=== PATIENT | male | born 1960 | race Two or more races ===

== ENCOUNTER 2016-05-27 09:56 | Day surgery (SDC) | payer OTHER ==
[~2016-05-27] VITALS: Ht 160 cm; Wt 64.9 kg
[~2016-05-27 09:56] MED LIST: AMLO10TA2 PO; BRIM5DRO3 EACHEYE; CALC667C6 PO; CARV12.52 PO; CARV25TA PO; CEFAZOLIN 2GM PREMIX 50 ML IV PRN; DEXAMETHASONE SOD PHOS 20 MG/5 ML VIAL. ONE; DOCU100C5 PO; DORZ10DR7 EACHEYE; FENTANYL PF 100 MCG/2 ML VIAL. IV PRN; FENTANYL PF 100 MCG/2 ML VIAL. ONE; FURO40TA4 PO; HEPARIN S0DIUM 5,000 UNIT in IV NORMAL SALINE 500ML BAG 500 ML IRR ONE; HYDR-2666 PO; HYDROMORPHONE 2 MG/ML VIAL. IV PRN; IV RINGERS,LACTATED 1000ML 1,000 ML IV SCH; LATA2.5D3 OP; LIDOCAINE 1% 1 ML SYRINGE. ID PRN; LIDOCAINE 1% PF 48 ML, SODIUM BICARBONATE VIAL 12 MEQ in TOTAL VOLUME SYRINGE 60 ML ID ONE; LIDOCAINE 2% 100 MG/5 ML DISP.SYRIN. ONE; LISI-334 PO; MIDAZOLAM HCL 2 MG/2 ML VIAL. ONE; MORPHINE SULFATE 2 MG/ML DISP.SYRIN. IV PRN; ONDANSETRON PF 4 MG/2 ML VIAL. IV PRN; ONDANSETRON PF 4 MG/2 ML VIAL. ONE; PRED5DRO6 OP; PROCHLORPERAZINE 10 MG/2 ML VIAL. IV PRN; PROPOFOL 20 ML IV ONE; SEVOFLURANE 61 TO 120 MINUTES. IH ONE
[2016-05-27] MEDS ORDERED: SURGICEL FIBRILLAR 1X2 EACH. ONE (10:33)
[2016-05-27 10:39] LABS: BASO # 0.1 x10^3/uL (0.0-0.2); BASO % 2 % (0-3); EOS % 4 % (0-3); HEMATOCRIT 32.8 % (39.0-53.0); HEMOGLOBIN 10.9 g/dL (13.0-17.5); LYMPH # 1.3 x10^3/uL (1.0-4.8); LYMPH % 19 % (24-48); MEAN CORPUSCULAR HEMOGLOBIN 28 pg (25-35); MEAN CORPUSCULAR HGB CONC 33 g/dL (31-37); MEAN CORPUSCULAR VOLUME 85 fL (79-100); MONO % 8 % (0-9); NEUT % 68 % (31-73); PLATELET COUNT 287 x10^3/uL (140-400); RED BLOOD COUNT 3.88 x10^6/uL (4.30-5.70); RED CELL DISTRIBUTION WIDTH 16.9 % (11.5-14.5); WHITE BLOOD COUNT 6.8 x10^3/uL (4.0-11.0)
[2016-05-27] MEDS ORDERED: CEFAZOLIN PREMIX 2 GM/50 ML BAG. IV ONE (10:45)
[2016-05-27 10:46] LABS: CALCIUM 8.8 mg/dL (8.5-10.1); CREATININE 4.9 mg/dL (0.7-1.3); GFR 12.4; POTASSIUM 3.4 mmol/L (3.5-5.1)
[2016-05-27 10:51] LABS: INR 1.2 (0.8-1.1); PROTHROMBIN TIME PATIENT 14.9 SEC (11.7-14.0)
--- NOTE | 2016-05-27 16:21 | PDOC ---
VASCULAR BRIEF OPERATIVE NOTE Date: May 27, 2016 Pre-Op Diagnosis ESRD Post-Op Diagnosis same Procedure Performed jose de jesus fistula, left Surgeon Catherine Anesthesia Type: MAC, Local Blood Loss 5 NAHUN COSME MD May 27, 2016 16:21
[2016-05-27] MEDS ORDERED: IV NORMAL SALINE 1000ML BAG 1,000 ML IV SCH (16:45)
[2016-05-27] MEDS ORDERED: HYDR-971 PO (16:48)
[2016-05-27 17:32] VITALS: BP 127/67
--- NOTE | 2016-05-27 22:54 | OP ---
DATE OF SURGERY: 05/27/2016 PREOPERATIVE DIAGNOSIS: End-stage renal failure. POSTOPERATIVE DIAGNOSIS: End-stage renal failure. PROCEDURE PERFORMED: AV fistula, left forearm. ANESTHETIC: Local MAC. INDICATIONS: This is a 55-year-old male with progressive renal failure, need of long-term hemodialysis. His vein mapping showed adequate cephalic vein in the forearm. He is right arm dominant. He has palpable radial pulse. Recommendation was for radiocephalic arteriovenous fistula. FINDINGS: The radial artery was small, 1 mm, but soft. The cephalic vein was excellent, 3.5 to 4 mm vessel. DESCRIPTION OF PROCEDURE: The patient was given intravenous sedation. Preoperative antibiotics were administered, prepped and draped in a sterile fashion. 1% Xylocaine was utilized to anesthetize the tissues overlying the tissues adjacent to the cephalic vein and over the top of the distal radial artery. Longitudinal incision was placed. Soft tissue divided with electrocautery. The radial artery was isolated, doubly surrounded with vessel loops. The patient received 3000 units of intravenous heparin. The cephalic vein was mobilized. A large side branch was identified. The distal cephalic vein and the side branches were ligated with 3-0 silk suture. The proximal cephalic vein was occluded with a small spring bulldog and the vein was harvested, was distended with heparinized saline solution. Venotomy between the side branch and the main branch was then created. Vessel loops were secured on the radial artery. Longitudinal arteriotomy was made with 11 blade, extended with Nuñez scissors. A spatulated end-to-side anastomosis was completed with 7-0 Prolene suture. Blood flow was instituted through the fistula. Palpable thrill was noted. Suture line was hemostatic. The wound was closed with running 3-0 Vicryl and subcuticular tissue. Steri-Strips and sterile dressings were applied. The patient moved from the operating room to recovery in satisfactory stable condition. NAHUN COSME MD DR: ANTONIO/lesvia JOB#: [id number] / [id number]
== END 2016-05-27 17:32 | disposition home or self-care (01) ==
LOC: SURG 09:56
DX: E11.22 Type 2 diabetes mellitus with diabetic chronic kidney disease (principal); I12.0 Hypertensive chronic kidney disease with stage 5 chronic kidney disease or end stage renal disease; N18.6 End stage renal disease; Z99.2 Dependence on renal dialysis; E78.00 Pure hypercholesterolemia, unspecified; Z98.42 Cataract extraction status, left eye
CPT/HCPCS: 36415; 36818; 80048; 82947; 85027; 85610; 85730; C1769; J0690; J1100; J2250; J2405; J2704; J3010; J7040

== ENCOUNTER 2016-08-16 05:36 | Day surgery (SDC) | payer MEDICARE, OTHER ==
[~2016-08-16 05:36] MED LIST changes: -BRIM5DRO3 EACHEYE; +BRIM5DRO3 LEFTEYE; -CEFAZOLIN 2GM PREMIX 50 ML IV PRN; -DEXAMETHASONE SOD PHOS 20 MG/5 ML VIAL. ONE; -DORZ10DR7 EACHEYE; +DORZ10DR7 LEFTEYE; -FENTANYL PF 100 MCG/2 ML VIAL. IV PRN; -FENTANYL PF 100 MCG/2 ML VIAL. ONE; -HEPARIN S0DIUM 5,000 UNIT in IV NORMAL SALINE 500ML BAG 500 ML IRR ONE; +HYDR-971 PO; -HYDROMORPHONE 2 MG/ML VIAL. IV PRN; +INSU100I17 SQ; -IV RINGERS,LACTATED 1000ML 1,000 ML IV SCH; -LIDOCAINE 1% 1 ML SYRINGE. ID PRN; -LIDOCAINE 1% PF 48 ML, SODIUM BICARBONATE VIAL 12 MEQ in TOTAL VOLUME SYRINGE 60 ML ID ONE; -LIDOCAINE 2% 100 MG/5 ML DISP.SYRIN. ONE; -MIDAZOLAM HCL 2 MG/2 ML VIAL. ONE; -MORPHINE SULFATE 2 MG/ML DISP.SYRIN. IV PRN; -ONDANSETRON PF 4 MG/2 ML VIAL. IV PRN; -ONDANSETRON PF 4 MG/2 ML VIAL. ONE; -PROCHLORPERAZINE 10 MG/2 ML VIAL. IV PRN; -PROPOFOL 20 ML IV ONE; -SEVOFLURANE 61 TO 120 MINUTES. IH ONE
[2016-08-16] MEDS ORDERED: LIDOCAINE 1% PF 48 ML, SODIUM BICARBONATE VIAL 12 MEQ in TOTAL VOLUME SYRINGE 60 ML ID ONE (06:00)
[2016-08-16] MEDS ORDERED: HEPARIN SODIUM 5,000 UNIT in IV NORMAL SALINE 500ML BAG 500 ML IRR ONE (06:00)
[2016-08-16] MEDS ORDERED: ASPI-482 PO (06:25)
[2016-08-16] MEDS ORDERED: IV NORMAL SALINE 1000ML BAG 1,000 ML IV SCH (06:44)
[2016-08-16 06:52] LABS: BASO # 0.1 x10^3/uL (0.0-0.2); BASO % 1 % (0-3); EOS % 6 % (0-3); HEMATOCRIT 34.4 % (39.0-53.0); HEMOGLOBIN 11.4 g/dL (13.0-17.5); LYMPH # 1.2 x10^3/uL (1.0-4.8); LYMPH % 22 % (24-48); MEAN CORPUSCULAR HEMOGLOBIN 30 pg (25-35); MEAN CORPUSCULAR HGB CONC 33 g/dL (31-37); MEAN CORPUSCULAR VOLUME 89 fL (79-100); MONO % 10 % (0-9); NEUT % 60 % (31-73); PLATELET COUNT 203 x10^3/uL (140-400); RED BLOOD COUNT 3.87 x10^6/uL (4.30-5.70); RED CELL DISTRIBUTION WIDTH 15.6 % (11.5-14.5); WHITE BLOOD COUNT 5.2 x10^3/uL (4.0-11.0)
[2016-08-16] MEDS ORDERED: fentaNYL PF VIAL 100 MCG/2 ML VIAL IV PRN ×2 (07:00)
[2016-08-16] MEDS ORDERED: PROCHLORPERAZINE 10 MG/2 ML VIAL. IV PRN (07:00)
[2016-08-16] MEDS ORDERED: HYDROmorphone 2 MG/ML VIAL IV PRN (07:00)
[2016-08-16] MEDS ORDERED: MORPHINE SULFATE 2 MG/ML DISP.SYRIN. IV PRN (07:00)
[2016-08-16] MEDS ORDERED: LIDOCAINE 1% 1 ML SYRINGE. ID PRN (07:00)
[2016-08-16] MEDS ORDERED: IV RINGERS,LACTATED 1000ML 1,000 ML IV SCH (07:00)
[2016-08-16] MEDS ORDERED: ONDANSETRON PF 4 MG/2 ML VIAL. IV PRN (07:00)
[2016-08-16 07:01] LABS: INR 1.2 (0.8-1.1); PROTHROMBIN TIME PATIENT 14.4 SEC (11.7-14.0)
[2016-08-16 07:03] LABS: CALCIUM 8.8 mg/dL (8.5-10.1); GFR 15.7; POTASSIUM 3.4 mmol/L (3.5-5.1)
[2016-08-16] MEDS ORDERED: IOHEXOL 300 MG/ML 50 ML VIAL. ONE (07:04)
[2016-08-16] MEDS ORDERED: SURGICEL FIBRILLAR 1X2 EACH. ONE (07:04)
[2016-08-16] MEDS ORDERED: fentaNYL PF VIAL 100 MCG/2 ML VIAL ONE (07:08)
[2016-08-16] MEDS ORDERED: PROPOFOL 20 ML IV ONE (07:08)
[2016-08-16] MEDS ORDERED: LIDOCAINE 2% 100 MG/5 ML SYRINGE. ONE (07:08)
[2016-08-16] MEDS ORDERED: DEXAMETHASONE SOD PHOS 20 MG/5 ML VIAL. ONE (07:28)
[2016-08-16] MEDS ORDERED: ONDANSETRON PF 4 MG/2 ML VIAL. ONE (07:28)
[2016-08-16] MEDS ORDERED: SEVOFLURANE 31 TO 60 MINUTES. IH ONE (08:05)
--- NOTE | 2016-08-16 08:27 | PDOC ---
VASCULAR BRIEF OPERATIVE NOTE Date: August 16, 2016 Pre-Op Diagnosis ESRD Post-Op Diagnosis same Procedure Performed side branch ligation and dilatation of distal cephalic vein fistula Surgeon Catherine Anesthesia Type: General Blood Loss min NAHUN COSME MD August 16, 2016 08:27
[2016-08-16 09:15] VITALS: BP 136/72
--- NOTE | 2016-08-16 13:52 | OP ---
DATE OF SURGERY: 08/16/2016 PREOPERATIVE DIAGNOSIS: Renal failure. POSTOPERATIVE DIAGNOSIS: Renal failure. PROCEDURE PERFORMED: Ligation of two side branches in the left forearm Zeeshan fistula and intraoperative distal cephalic vein dilatation. SURGEON: Mayito Alexander M.D. ANESTHESIA: General. INDICATIONS: This is a 55-year-old patient with end-stage renal disease, dialysis dependent. Currently, has a central catheter for hemodialysis. He had an AV fistula placed Zeeshan-type several weeks ago. Followup ultrasound examination shows flow volumes of 693, two side branches are noted and there is suggestion of some narrowing of the distal venous segment adjacent to the anastomosis. Recommendation was for side branch ligation and intraoperative dilatation of the cephalic vein. DESCRIPTION OF PROCEDURE: The patient was brought to the Operating Room, general LMA anesthetic was administered. He was prepped and draped in sterile fashion. 1% Xylocaine was utilized to anesthetize the tissues overlying the side branches. Longitudinal incisions were placed, the main cephalic vein was visualized and the side branches were isolated. The most proximal side branch was ligated with 3-0 silk suture. The distal side branch was controlled proximally with vessel loops and ligated distally with a 3-0 silk suture. A small transverse venotomy was then made with 11 blade. A 1.5 through 2.5 mm Bakes dilator was then passed through this side branch into the distal vein towards the anastomosis and the dilator was passed readily into the radial artery. A 3-mm dilator would pass all the way up to the radial artery, did not pass into the radial artery and it was not forced at that point in time 2.5 mm outflow cephalic vein was of sufficient size to support long-term hemodialysis. The side branch dilators were then removed. The side branch was ligated with 3-0 silk suture and the wounds were closed with interrupted 3-0 Vicryl placed in subcuticular tissue. Steri-Strips and sterile dressings were applied. The patient moved to recovery in satisfactory stable condition. MAYITO ALEXANDER MD DR: ANTONIO/lesvia JOB#: [id number] / [id number]
== END 2016-08-16 09:30 | disposition home or self-care (01) ==
LOC: SURG 05:36
DX: E11.22 Type 2 diabetes mellitus with diabetic chronic kidney disease (principal); I12.0 Hypertensive chronic kidney disease with stage 5 chronic kidney disease or end stage renal disease; N18.6 End stage renal disease; J44.9 Chronic obstructive pulmonary disease, unspecified; Z87.01 Personal history of pneumonia (recurrent); D64.9 Anemia, unspecified; Z99.2 Dependence on renal dialysis
CPT/HCPCS: 36415; 36832; 80048; 85027; 85610; 85730; C1769; J0690; J1100; J2405; J2704; J3010; J7040; Q9967

== ENCOUNTER 2017-01-06 10:04 | Outpatient (CLI) | payer MEDICARE, OTHER ==
[~2017-01-06] VITALS: Ht 160 cm; Wt 61.7 kg
[~2017-01-06 10:04] MED LIST changes: +ASPI-482 PO; +DOCU100C28 PO; -DOCU100C5 PO; -HYDR-2666 PO; +HYDR-2758 PO; +PRED5DRO16 OP; -PRED5DRO6 OP
[2017-01-06] MEDS ORDERED: LEVO50TA5 PO (10:25)
[2017-01-06 10:29] LABS: BASO # 0.1 x10^3/uL (0.0-0.2); BASO % 1 % (0-3); EOS % 4 % (0-3); HEMATOCRIT 32.2 % (39.0-53.0); HEMOGLOBIN 10.5 g/dL (13.0-17.5); LYMPH # 0.8 x10^3/uL (1.0-4.8); LYMPH % 13 % (24-48); MEAN CORPUSCULAR HEMOGLOBIN 30 pg (25-35); MEAN CORPUSCULAR HGB CONC 32 g/dL (31-37); MEAN CORPUSCULAR VOLUME 92 fL (79-100); MONO % 7 % (0-9); NEUT % 74 % (31-73); PLATELET COUNT 178 x10^3/uL (140-400); RED BLOOD COUNT 3.51 x10^6/uL (4.30-5.70); RED CELL DISTRIBUTION WIDTH 16.6 % (11.5-14.5); WHITE BLOOD COUNT 5.8 x10^3/uL (4.0-11.0)
[2017-01-06 10:36] VITALS: BP 151/75
[2017-01-06] MEDS ORDERED: IODIXANOL 320 MG/ML 100 ML VIAL. ONE (10:38)
[2017-01-06] MEDS ORDERED: LIDOCAINE 1% / SOD BICARB 8.4% 20 ML VIAL. IJ ONE ×2 (10:38→11:15)
[2017-01-06 10:39] LABS: CREATININE 8.3 mg/dL (0.7-1.3); GFR 6.7; INR 1.2 (0.8-1.1); POTASSIUM 4.6 mmol/L (3.5-5.1); PROTHROMBIN TIME PATIENT 14.1 SEC (11.7-14.0)
--- NOTE | 2017-01-06 10:44 | PDOC1 ---
History and Physical Date of Procedure Date of Admission 01/06/17 Procedure Procedure Fistulogram with possible intervention Indication Indication Difficulty with dialysis access, possibly clotted History of Present Illness Reason for Visit Same Past Medical History Past Medical History CHF, ESRD on dialysis, CAP, pleural effusion Past Surgical History Past Surgical History LUE fistula Current Medications Current Medications Active Scripts Active Phoslo (Calcium Acetate) 667 Mg Capsule 1,334 Mg PO TIDWMEALS Coreg (Carvedilol) 25 Mg Tablet 1 Tab PO BID Reported Levothyroxine Sodium 50 Mcg Tablet 1 Tab PO DAILY Aspir 81 (Aspirin) 81 Mg Tablet.dr 1 Tab PO DAILY Wayne 5-325 Tablet (Acetaminophen/Hydrocodone Bitart) 1 Each Tablet 1 Tab PO Q4HRS PRN Amlodipine Besylate 10 Mg Tablet 10 Mg PO DAILY Docusate Sodium 100 Mg Capsule 1 Cap PO BID PRN Furosemide 40 Mg Tablet 1 Tab PO BID Allergies Allergies: Coded Allergies: No Known Drug Allergies (Unverified , 08/14/16) Physical Exam Lungs: Clear to auscultation Heart: Regular rate, Normal S1, Normal S2 Neuro: Normal gait, Normal speech Vascular Bruit in LUE fistula Assessment Assessment Difficulty with LUE fistula during dialysis, possible clot or stenosis Problems: Plan Plan Fistulogram with possible intervention ISMAEL GONZALEZ MD Jan 06, 2017 10:44
[2017-01-06] MEDS ORDERED: fentaNYL PF VIAL 100 MCG/2 ML VIAL ONE (10:53)
[2017-01-06] MEDS ORDERED: MIDAZOLAM HCL/PF 2 MG/2 ML VIAL. ONE (10:54)
[2017-01-06] MEDS ORDERED: MIDAZOLAM HCL/PF 2 MG/2 ML VIAL. IV ONE (11:15)
[2017-01-06] MEDS ORDERED: IODIXANOL 320 MG/ML 100 ML VIAL. IART ONE (11:15)
[2017-01-06] MEDS ORDERED: fentaNYL PF VIAL 100 MCG/2 ML VIAL IV ONE (11:15)
[2017-01-06] MEDS ORDERED: HEPARIN for IV BOLUS 10,000 UNIT/10 ML VIAL. ONE (11:31)
[2017-01-06] MEDS ORDERED: HEPARIN for IV BOLUS 10,000 UNIT/10 ML VIAL. IV ONE (11:47)
--- NOTE | 2017-01-06 12:05 | PDOC ---
Exam Biomedical Specialist Biomedical Specialist Natalie Tool Setter Apprentice Tool Setter Apprentice None Pre-Procedure Diagnosis Pre-Procedure Diagnosis ESRD on dialysis, difficulty with dialysis access Post-Procedure Diagnosis Post-Procedure Diagnosis Same Procedure Performed Procedure Performed Fistulogram with angioplasty Type of Anesthesia Type of Anesthesia Moderate Sedation Estimated Blood Loss EBL: 10 cc Specimens Specimans None Drain/Tubes Drains/Tubes None Condition of Patient Condition of Patient Stable ISMAEL GONZALEZ MD Jan 06, 2017 12:05
[2017-01-06 12:14] VITALS: BP 130/73
[2017-01-06 12:25] VITALS: BP 123/62
[2017-01-06 12:40] VITALS: BP 128/56
[2017-01-06 13:00] VITALS: BP 128/56
--- NOTE | 2017-01-06 13:18 | RAD ---
Procedure: 1. Left upper extremity dialysis fistulogram. 2. Angioplasty of the fistula near the arterial anastomosis Fistula has a palpable thrill prior to intervention. The procedure, risks, and complications, to include bleeding, infection, fistula rupture, need for a dialysis catheter were explained to the patient and his daughter and they understood and wished to proceed. Consent form signed. The left forearm was prepped and draped using maximal sterile technique and 1% Xylocaine used for local anesthesia. A micropuncture needle was used to access the fistula directed toward the outflow tract. A 0.018 wire was advanced through the micropuncture needle. Small dermatotomy was made. Micropuncture needle was removed and replaced with a micropuncture sheath. 0.018 wire and inner stiffener were removed. Fistulogram was performed. Fistulogram: Digital subtraction fistulogram was performed. There is a two-vessel outflow with the cephalic and brachial veins. The central veins are unremarkable without stenosis. There is a area of short segment stenosis in the fistula near the arterial anastomosis. Small pseudoaneurysm was in the fistula seen at the arterial anastomosis. The inflow artery is unremarkable. Attention was then placed on access directed toward the arterial anastomosis. A micropuncture needle was used to access the fistula directed toward the outflow tract. A 0.018 wire was advanced through the micropuncture needle. Small dermatotomy was made. Micropuncture needle was removed and replaced with a micropuncture sheath. 0.018 wire and inner stiffener were removed. Next a 5 Taiwanese sheath was placed over a Bentson wire directed towards the arterial anastomosis. Intervention: A 3 mm x 4 cm balloon was advanced across the stenosis. The balloon was inflated to 10 atmospheres. Repeat fistulogram showed improved flow in the fistula with mild residual stenosis. The sheath was removed and stasis was achieved with pursestring suture and manual compression. The micropuncture sheath was removed and stasis was achieved with manual compression. Sedation: Conscious sedation for 67 minutes. Intravenous Versed and fentanyl were administered. The patient was monitored by pulse oximetry and cardiovascular monitoring equipment and observed by the nurses in attendance. Complications: None Contrast: 90 ml's Visipaque. FLUOROSCOPY TIME 5.8 minutes EXPOSURES: 8 DAP: 46 gycm2 The patient tolerated the procedure well and will be observed in the recovery area. IMPRESSION: 1. Area of moderate stenosis in the fistula near the arterial anastomosis was treated with angioplasty. Only mild residual stenosis was seen with brisk flow through the length of the fistula post angioplasty. The residual stenosis may be due to immaturity. The area was angioplastied only to 3 mm due to concern for fistula damage if the region was narrowed due to immaturity. 2. Multiple thrombosed pseudoaneurysms were seen through the length of the fistula on ultrasound. Small pseudoaneurysm in the fistula just past the arterial anastomosis.
== END 2017-01-06 14:00 | disposition home or self-care (01) ==
LOC: INTRAD 10:04
PROVIDERS: ATTEND Internal Medicine Nephrology
DX: T82.858A Stenosis of other vascular prosthetic devices, implants and grafts, initial encounter (principal); Y83.8 Other surgical procedures as the cause of abnormal reaction of the patient, or of later complication, without mention of misadventure at the time of the procedure; Y92.89 Other specified places as the place of occurrence of the external cause; E11.39 Type 2 diabetes mellitus with other diabetic ophthalmic complication; H40.9 Unspecified glaucoma; E78.00 Pure hypercholesterolemia, unspecified; I13.0 Hypertensive heart and chronic kidney disease with heart failure and stage 1 through stage 4 chronic kidney disease, or unspecified chronic kidney disease; E11.22 Type 2 diabetes mellitus with diabetic chronic kidney disease; N18.9 Chronic kidney disease, unspecified; I50.9 Heart failure, unspecified; F17.200 Nicotine dependence, unspecified, uncomplicated; J44.9 Chronic obstructive pulmonary disease, unspecified; D64.9 Anemia, unspecified; Z87.442 Personal history of urinary calculi; Z86.69 Personal history of other diseases of the nervous system and sense organs; Z98.42 Cataract extraction status, left eye; Z99.2 Dependence on renal dialysis; Z87.01 Personal history of pneumonia (recurrent); Z87.39 Personal history of other diseases of the musculoskeletal system and connective tissue
CPT/HCPCS: 36415; 36902; 76937; 80048; 85025; 85610; 99152; 99153; C1725; C1769; C1892; C1894; J1644; J2250; J3010

== ENCOUNTER 2017-06-09 22:06 | Inpatient (IN) | payer MEDICARE, OTHER ==
[2017-06-09 22:40] LABS: BASO # 0.1 x10^3/uL (0.0-0.2); BASO % 1 % (0-3); EOS # 0.2 x10^3/uL (0.0-0.7); EOS % 2 % (0-3); HEMATOCRIT 35.6 % (39.0-53.0); HEMOGLOBIN 11.7 g/dL (13.0-17.5); LYMPH # 0.5 x10^3/uL (1.0-4.8); LYMPH % 4 % (24-48); MEAN CORPUSCULAR HEMOGLOBIN 29 pg (25-35); MEAN CORPUSCULAR HGB CONC 33 g/dL (31-37); MEAN CORPUSCULAR VOLUME 89 fL (79-100); MONO # 0.5 x10^3/uL (0.0-1.1); MONO % 4 % (0-9); NEUT # 10.3 x10^3uL (1.8-7.7); NEUT % 89 % (31-73); PLATELET COUNT 247 x10^3/uL (140-400); RED BLOOD COUNT 4.02 x10^6/uL (4.30-5.70); RED CELL DISTRIBUTION WIDTH 15.4 % (11.5-14.5); WHITE BLOOD COUNT 11.5 x10^3/uL (4.0-11.0)
[2017-06-09 22:41] LABS: ADD MAN DIFF? YES
[2017-06-09 22:49] LABS: ANION GAP 18 (6-14); BLOOD UREA NITROGEN 50 mg/dL (8-26); CALCIUM 9.5 mg/dL (8.5-10.1); CARBON DIOXIDE 20 mmol/L (21-32); CHLORIDE 105 mmol/L (98-107); CREATININE 5.3 mg/dL (0.7-1.3); GFR 11.3; GLUCOSE 112 mg/dL (70-99); POTASSIUM 4.5 mmol/L (3.5-5.1); SODIUM 143 mmol/L (136-145)
[2017-06-09 22:55] LABS: ALBUMIN 3.6 g/dL (3.4-5.0); ALK PHOS 234 U/L (46-116); ALT (SGPT) 26 U/L (16-63); AST (SGOT) 24 U/L (15-37); DIRECT BILIRUBIN 0.3 mg/dL (0.0-0.2); MAGNESIUM 2.3 mg/dL (1.8-2.4); TOTAL BILIRUBIN 0.6 mg/dL (0.2-1.0); TOTAL PROTEIN 8.7 g/dL (6.4-8.2)
[2017-06-09 22:58] LABS: TROPONINI < 0.017 ng/mL (0.000-0.055)
[2017-06-09 22:58] LABS: % BANDS 7 % (0-9); % EOS 1 % (0-5); % LYMPHS 8 % (24-48); % MONOS 7 % (0-10); % SEGS 77 % (35-66); PLT ESTIMATE ADEQUATE (ADEQUATE)
[2017-06-09] MEDS ORDERED: PIP/TAZO PER PHARMACY MC (23:00)
[2017-06-09] MEDS ORDERED: levOFLOXacin PER PHARMACY. MC (23:00)
[2017-06-09 23:02] LABS: CKMB INDEX 2.3 % (0-4); CREATINE KINASE 175 U/L (39-308)
[2017-06-09 23:08] LABS: NT-PRO BNP > 35000 pg/mL (0-124)
[2017-06-09 23:13] LABS: LACTIC ACID 1.8 mmol/L (0.4-2.0)
[2017-06-09] MEDS: PIPERACILLIN/TAZOBACTAM 3.375 GM in IV NORMAL SALINE 50ML 50 ML IV (23:25)
[2017-06-10] MEDS ORDERED: hydrALAZINE 20 MG/ML VIAL. IVP ×2 (00:45→14:15)
[2017-06-10] MEDS: fentaNYL PF VIAL 100 MCG/2 ML VIAL IV ×5 (01:31→19:00)
[2017-06-10] MEDS: VANCOMYCIN 1.5 GM in IV DEXTROSE 5 %-0.2 % NACL 500 ML IV (02:34)
[2017-06-10 02:52] LABS: ADD MAN DIFF? NO
[2017-06-10] MEDS: VANCOMYCIN PER PHARMACY MC (02:58)
[2017-06-10 04:21] LABS: BASO # 0.1 x10^3/uL (0.0-0.2); BASO % 1 % (0-3); EOS % 0 % (0-3); HEMATOCRIT 32.2 % (39.0-53.0); HEMOGLOBIN 10.5 g/dL (13.0-17.5); LYMPH # 0.5 x10^3/uL (1.0-4.8); LYMPH % 5 % (24-48); MEAN CORPUSCULAR HEMOGLOBIN 29 pg (25-35); MEAN CORPUSCULAR HGB CONC 33 g/dL (31-37); MEAN CORPUSCULAR VOLUME 90 fL (79-100); MONO # 0.7 x10^3/uL (0.0-1.1); MONO % 6 % (0-9); NEUT # 10.2 x10^3uL (1.8-7.7); NEUT % 89 % (31-73); PLATELET COUNT 211 x10^3/uL (140-400); RED BLOOD COUNT 3.59 x10^6/uL (4.30-5.70); RED CELL DISTRIBUTION WIDTH 15.6 % (11.5-14.5); WHITE BLOOD COUNT 11.5 x10^3/uL (4.0-11.0)
[2017-06-10 05:24] LABS: ALBUMIN 2.9 g/dL (3.4-5.0); ALBUMIN/GLOBULIN RATIO 0.7 (1.0-1.7); ALK PHOS 171 U/L (46-116); ALT (SGPT) 23 U/L (16-63); ANION GAP 15 (6-14); AST (SGOT) 19 U/L (15-37); BLOOD UREA NITROGEN 53 mg/dL (8-26); BUN/CREATININE RATIO 10 (6-20); CARBON DIOXIDE 19 mmol/L (21-32); CHLORIDE 106 mmol/L (98-107); CREATININE 5.3 mg/dL (0.7-1.3); GFR 11.3; GLUCOSE 106 mg/dL (70-99); POTASSIUM 4.3 mmol/L (3.5-5.1); SODIUM 140 mmol/L (136-145); TOTAL BILIRUBIN 0.7 mg/dL (0.2-1.0); TOTAL PROTEIN 7.2 g/dL (6.4-8.2)
[2017-06-10] MEDS: ONDANSETRON PF 4 MG/2 ML VIAL. IV (05:40)
[2017-06-10] MEDS: PIPERACILLIN/TAZOBACTAM 2.25 GM in IV NORMAL SALINE 50ML 50 ML IV (06:21)
[2017-06-10 07:44] LABS: TROPONINI 0.017 ng/mL (0.000-0.055)
[2017-06-10] MEDS: LACTOBACILLUS RHAMNOSUS GG 1 CAPSULE. PO ×2 (08:17→20:57)
[2017-06-10] MEDS ORDERED: MAGNESIUM SULFATE 2GM 50 ML IV (08:45)
[2017-06-10 12:43] LABS: INFLUENZA A PATIENT NEGATIVE (NEGATIVE); INFLUENZA B PATIENT NEGATIVE (NEGATIVE); OBC FLU VALID
[2017-06-10] MEDS ORDERED: IV NORMAL SALINE 1000ML BAG 1,000 ML IV ×2 (13:41)
[2017-06-10] MEDS ORDERED: DIALYSIS PATIENT. MC ×2 (13:45)
[2017-06-10] MEDS ORDERED: ALBUMIN HUMAN 25% 200 ML IV (13:45)
[2017-06-10] MEDS ORDERED: PROCHLORPERAZINE 5 MG TABLET. PO (14:15)
[2017-06-10] MEDS ORDERED: DOCUSATE SODIUM 100 MG CAPSULE. PO (14:15)
[2017-06-10] MEDS ORDERED: ALBUTEROL SULFATE 2.5 MG/3 ML NEBU. NEB (14:15)
[2017-06-10] MEDS ORDERED: ONDANSETRON ODT 4 MG TAB.RAPDIS. PO (14:15)
[2017-06-10] MEDS ORDERED: VANCOMYCIN RANDOM LEVEL. MC (16:00)
[2017-06-10] MEDS: CALCIUM ACETATE 667 MG CAPSULE PO (17:00)
[2017-06-10] MEDS: CARVEDILOL 12.5 MG TABLET. PO (18:59)
[2017-06-10] MEDS: SODIUM CHLORIDE 0.65% NASAL SPRAY 45ML BOTTLE. NS (20:08)
[2017-06-10] MEDS: FUROSEMIDE 40 MG TABLET. PO (20:57)
[2017-06-10] MEDS: DARBEPOETIN ALFA 60 MCG/0.3 ML DISP.SYRIN. SQ (20:58)
[2017-06-10] MEDS: hydrALAZINE 25 MG TABLET PO (20:58)
[2017-06-10] MEDS: DOCUSATE SODIUM 100 MG CAPSULE. PO (20:58)
[2017-06-10] MEDS: ZOLPIDEM 5 MG TABLET. PO (21:02)
[2017-06-10] MEDS: HEPARIN PF for SUB-Q USE 5,000 UNIT/0.5 ML VIAL. SQ (21:03)
[2017-06-11] MEDS: traMADol 50 MG TABLET PO ×2 (02:42→20:40)
[2017-06-11 04:42] LABS: ADD MAN DIFF? NO
[2017-06-11 04:58] LABS: BASO % 0 % (0-3); EOS % 0 % (0-3); HEMATOCRIT 31.2 % (39.0-53.0); HEMOGLOBIN 10.2 g/dL (13.0-17.5); LYMPH # 0.6 x10^3/uL (1.0-4.8); LYMPH % 4 % (24-48); MEAN CORPUSCULAR HEMOGLOBIN 29 pg (25-35); MEAN CORPUSCULAR HGB CONC 33 g/dL (31-37); MEAN CORPUSCULAR VOLUME 89 fL (79-100); MONO # 1.1 x10^3/uL (0.0-1.1); MONO % 8 % (0-9); NEUT # 11.7 x10^3uL (1.8-7.7); NEUT % 87 % (31-73); PLATELET COUNT 174 x10^3/uL (140-400); RED BLOOD COUNT 3.51 x10^6/uL (4.30-5.70); RED CELL DISTRIBUTION WIDTH 15.8 % (11.5-14.5); WHITE BLOOD COUNT 13.4 x10^3/uL (4.0-11.0)
[2017-06-11 05:17] LABS: ALBUMIN 2.5 g/dL (3.4-5.0); ANION GAP 9 (6-14); BLOOD UREA NITROGEN 32 mg/dL (8-26); CALCIUM 8.5 mg/dL (8.5-10.1); CARBON DIOXIDE 32 mmol/L (21-32); CHLORIDE 98 mmol/L (98-107); CREATININE 3.6 mg/dL (0.7-1.3); GFR 17.7; GLUCOSE 95 mg/dL (70-99); MAGNESIUM 1.9 mg/dL (1.8-2.4); PHOSPHORUS 2.2 mg/dL (2.6-4.7); POTASSIUM 3.8 mmol/L (3.5-5.1); SODIUM 139 mmol/L (136-145)
[2017-06-11] MEDS: LEVOTHYROXINE 50 MCG TABLET PO (06:19)
[2017-06-11] MEDS: HEPARIN PF for SUB-Q USE 5,000 UNIT/0.5 ML VIAL. SQ ×3 (06:20→20:44)
[2017-06-11] MEDS: LACTOBACILLUS RHAMNOSUS GG 1 CAPSULE. PO ×2 (08:56→20:39)
[2017-06-11] MEDS: FUROSEMIDE 40 MG TABLET. PO ×2 (08:56→15:25)
[2017-06-11] MEDS: hydrALAZINE 25 MG TABLET PO ×2 (08:56→20:39)
[2017-06-11] MEDS: CALCIUM ACETATE 667 MG CAPSULE PO ×3 (08:56→16:35)
[2017-06-11] MEDS: ASPIRIN ENTERIC COATED 81 MG TABLET.DR. PO (08:56)
[2017-06-11] MEDS: DOCUSATE SODIUM 100 MG CAPSULE. PO ×2 (08:56→20:39)
[2017-06-11] MEDS: amLODIPine BESYLATE 10 MG TABLET PO (08:57)
[2017-06-11] MEDS: LISINOPRIL 20 MG TABLET PO (08:57)
[2017-06-11] MEDS: CARVEDILOL 12.5 MG TABLET. PO ×2 (08:58→16:36)
[2017-06-11] MEDS: ISOSORBIDE MONONITRATE ER 30 MG TAB.ER.24H PO (09:02)
[2017-06-11] MEDS ORDERED: IV NORMAL SALINE 1000ML BAG 1,000 ML IV ×2 (10:22)
[2017-06-11] MEDS ORDERED: ACETAMINOPHEN 500 MG TABLET PO (10:30)
[2017-06-11] MEDS ORDERED: diphenhydrAMINE 50 MG/ML VIAL IV ×2 (10:30)
[2017-06-11] MEDS ORDERED: DIALYSIS PATIENT. MC (10:30)
[2017-06-11] MEDS: ACETAMINOPHEN 325 MG TABLET. PO (19:07)
[2017-06-11] MEDS: ZOLPIDEM 5 MG TABLET. PO (20:39)
[2017-06-12 05:04] LABS: ADD MAN DIFF? NO
[2017-06-12 05:23] LABS: BASO % 0 % (0-3); EOS # 0.1 x10^3/uL (0.0-0.7); EOS % 0 % (0-3); HEMATOCRIT 31.5 % (39.0-53.0); HEMOGLOBIN 10.2 g/dL (13.0-17.5); LYMPH # 0.5 x10^3/uL (1.0-4.8); LYMPH % 4 % (24-48); MEAN CORPUSCULAR HEMOGLOBIN 29 pg (25-35); MEAN CORPUSCULAR HGB CONC 32 g/dL (31-37); MEAN CORPUSCULAR VOLUME 90 fL (79-100); MONO # 1.1 x10^3/uL (0.0-1.1); MONO % 8 % (0-9); NEUT # 12.7 x10^3uL (1.8-7.7); NEUT % 88 % (31-73); PLATELET COUNT 180 x10^3/uL (140-400); RED BLOOD COUNT 3.51 x10^6/uL (4.30-5.70); RED CELL DISTRIBUTION WIDTH 15.9 % (11.5-14.5); WHITE BLOOD COUNT 14.4 x10^3/uL (4.0-11.0)
[2017-06-12 05:48] LABS: ALBUMIN 2.3 g/dL (3.4-5.0); ANION GAP 9 (6-14); BLOOD UREA NITROGEN 39 mg/dL (8-26); CALCIUM 8.9 mg/dL (8.5-10.1); CARBON DIOXIDE 29 mmol/L (21-32); CHLORIDE 100 mmol/L (98-107); CREATININE 3.3 mg/dL (0.7-1.3); GFR 19.6; GLUCOSE 102 mg/dL (70-99); MAGNESIUM 2.1 mg/dL (1.8-2.4); PHOSPHORUS 2.3 mg/dL (2.6-4.7); POTASSIUM 4.1 mmol/L (3.5-5.1); SODIUM 138 mmol/L (136-145)
[2017-06-12] MEDS: LEVOTHYROXINE 50 MCG TABLET PO (06:16)
[2017-06-12] MEDS: HEPARIN PF for SUB-Q USE 5,000 UNIT/0.5 ML VIAL. SQ ×3 (06:17→21:02)
[2017-06-12] MEDS: CALCIUM ACETATE 667 MG CAPSULE PO ×3 (07:32→15:35)
[2017-06-12] MEDS: DOCUSATE SODIUM 100 MG CAPSULE. PO ×2 (07:32→20:57)
[2017-06-12] MEDS: LACTOBACILLUS RHAMNOSUS GG 1 CAPSULE. PO ×2 (07:32→20:56)
[2017-06-12] MEDS: ASPIRIN ENTERIC COATED 81 MG TABLET.DR. PO (07:32)
[2017-06-12] MEDS ORDERED: IV NORMAL SALINE 1000ML BAG 1,000 ML IV ×2 (07:35)
[2017-06-12] MEDS: LISINOPRIL 20 MG TABLET PO (07:36)
[2017-06-12] MEDS: amLODIPine BESYLATE 10 MG TABLET PO (07:36)
[2017-06-12] MEDS: hydrALAZINE 25 MG TABLET PO ×2 (07:36→20:57)
[2017-06-12] MEDS: CARVEDILOL 12.5 MG TABLET. PO ×2 (07:37→15:36)
[2017-06-12] MEDS: ISOSORBIDE MONONITRATE ER 30 MG TAB.ER.24H PO (07:37)
[2017-06-12] MEDS ORDERED: ACETAMINOPHEN 500 MG TABLET PO (07:45)
[2017-06-12] MEDS ORDERED: diphenhydrAMINE 50 MG/ML VIAL IV ×2 (07:45)
[2017-06-12] MEDS ORDERED: DIALYSIS PATIENT. MC (07:45)
[2017-06-12] MEDS: FUROSEMIDE 40 MG TABLET. PO ×2 (09:00→15:24)
[2017-06-12] MEDS: traMADol 50 MG TABLET PO (15:35)
[2017-06-12] MEDS: ZOLPIDEM 5 MG TABLET. PO (20:57)
[2017-06-12 21:44] LABS: BILIRUBIN,URINE MODERATE (NEG); CLARITY,URINE CLOUDY; GLUCOSE,URINE 250 mg/dL (NEG); NITRITE,URINE NEGATIVE (NEG); PROTEIN,URINE >=300 mg/dL (NEG-TRACE)
[2017-06-12 21:55] LABS: COLOR,URINE AMBER
[2017-06-12 21:56] LABS: RBC,URINE >40 /HPF (0-2); WBC,URINE >40 /HPF (0-4)
[2017-06-12 21:57] LABS: BACTERIA,URINE FEW /HPF (0-FEW); HYALINE CASTS, URINE FEW /HPF
[2017-06-12 21:58] LABS: AMORPHOUS SEDIMENT,UR PRESENT /HPF
[2017-06-13 03:47] LABS: ALBUMIN 2.3 g/dL (3.4-5.0); ANION GAP 8 (6-14); BLOOD UREA NITROGEN 40 mg/dL (8-26); CALCIUM 8.9 mg/dL (8.5-10.1); CARBON DIOXIDE 32 mmol/L (21-32); CHLORIDE 97 mmol/L (98-107); CREATININE 3.1 mg/dL (0.7-1.3); GLUCOSE 148 mg/dL (70-99); MAGNESIUM 2.1 mg/dL (1.8-2.4); PHOSPHORUS 1.4 mg/dL (2.6-4.7); POTASSIUM 4.1 mmol/L (3.5-5.1); SODIUM 137 mmol/L (136-145)
[2017-06-13] MEDS: LEVOTHYROXINE 50 MCG TABLET PO (07:33)
[2017-06-13] MEDS: HEPARIN PF for SUB-Q USE 5,000 UNIT/0.5 ML VIAL. SQ ×3 (07:35→21:08)
[2017-06-13 08:37] LABS: INR 1.3 (0.8-1.1); PROTHROMBIN TIME PATIENT 15.6 SEC (11.7-14.0)
[2017-06-13] MEDS: ISOSORBIDE MONONITRATE ER 30 MG TAB.ER.24H PO (09:08)
[2017-06-13] MEDS: ASPIRIN ENTERIC COATED 81 MG TABLET.DR. PO (09:08)
[2017-06-13] MEDS: FUROSEMIDE 40 MG TABLET. PO ×2 (09:08→12:53)
[2017-06-13] MEDS: LISINOPRIL 20 MG TABLET PO (09:09)
[2017-06-13] MEDS: DOCUSATE SODIUM 100 MG CAPSULE. PO ×2 (09:09→20:56)
[2017-06-13] MEDS: amLODIPine BESYLATE 10 MG TABLET PO (09:09)
[2017-06-13] MEDS: LACTOBACILLUS RHAMNOSUS GG 1 CAPSULE. PO ×2 (09:09→20:56)
[2017-06-13] MEDS: CARVEDILOL 12.5 MG TABLET. PO ×2 (09:10→16:51)
[2017-06-13] MEDS: CALCIUM ACETATE 667 MG CAPSULE PO ×2 (09:10→12:52)
[2017-06-13] MEDS: hydrALAZINE 25 MG TABLET PO ×2 (09:10→20:59)
[2017-06-13] MEDS ORDERED: PIP/TAZO PER PHARMACY MC (10:45)
[2017-06-13] MEDS: VANCOMYCIN 1.5 GM in IV DEXTROSE 5 %-0.2 % NACL 500 ML IV (12:52)
[2017-06-13] MEDS: PIPERACILLIN/TAZOBACTAM 3.375 GM in IV NORMAL SALINE 50ML 50 ML IV (12:54)
[2017-06-13] MEDS: VANCOMYCIN PER PHARMACY MC (14:44)
[2017-06-13] MEDS ORDERED: LIDOCAINE WITH 8.4% SOD BICARB 3 ML DISP.SYRIN. (15:05)
[2017-06-13] MEDS: LIDOCAINE WITH 8.4% SOD BICARB 3 ML DISP.SYRIN. INJ (15:45)
[2017-06-13] MEDS: ACETAMINOPHEN 325 MG TABLET. PO (17:35)
[2017-06-13] MEDS: ZOLPIDEM 5 MG TABLET. PO (20:56)
[2017-06-13] MEDS: PIPERACILLIN/TAZOBACTAM 2.25 GM in IV NORMAL SALINE 50ML 50 ML IV (20:59)
[2017-06-14 05:48] LABS: ADD MAN DIFF? NO
[2017-06-14 05:55] LABS: BASO % 0 % (0-3); EOS # 0.1 x10^3/uL (0.0-0.7); EOS % 1 % (0-3); HEMATOCRIT 29.7 % (39.0-53.0); HEMOGLOBIN 9.6 g/dL (13.0-17.5); LYMPH # 0.5 x10^3/uL (1.0-4.8); LYMPH % 6 % (24-48); MEAN CORPUSCULAR HEMOGLOBIN 29 pg (25-35); MEAN CORPUSCULAR HGB CONC 32 g/dL (31-37); MEAN CORPUSCULAR VOLUME 89 fL (79-100); MONO % 11 % (0-9); NEUT # 7.6 x10^3uL (1.8-7.7); NEUT % 82 % (31-73); PLATELET COUNT 158 x10^3/uL (140-400); RED BLOOD COUNT 3.36 x10^6/uL (4.30-5.70); RED CELL DISTRIBUTION WIDTH 15.6 % (11.5-14.5); WHITE BLOOD COUNT 9.4 x10^3/uL (4.0-11.0)
[2017-06-14 06:07] LABS: MAGNESIUM 2.4 mg/dL (1.8-2.4)
[2017-06-14 06:08] LABS: ANION GAP 6 (6-14); BLOOD UREA NITROGEN 73 mg/dL (8-26); CALCIUM 9.1 mg/dL (8.5-10.1); CARBON DIOXIDE 29 mmol/L (21-32); CHLORIDE 94 mmol/L (98-107); CREATININE 4.9 mg/dL (0.7-1.3); GFR 12.4; GLUCOSE 189 mg/dL (70-99); PHOSPHORUS 1.2 mg/dL (2.6-4.7); POTASSIUM 4.1 mmol/L (3.5-5.1); SODIUM 129 mmol/L (136-145)
[2017-06-14] MEDS: PIPERACILLIN/TAZOBACTAM 2.25 GM in IV NORMAL SALINE 50ML 50 ML IV ×3 (06:15→22:10)
[2017-06-14] MEDS: LEVOTHYROXINE 50 MCG TABLET PO (06:15)
[2017-06-14] MEDS: HEPARIN PF for SUB-Q USE 5,000 UNIT/0.5 ML VIAL. SQ ×3 (06:16→22:16)
[2017-06-14] MEDS: traMADol 50 MG TABLET PO (06:32)
[2017-06-14] MEDS: FUROSEMIDE 40 MG TABLET. PO ×2 (09:00→14:00)
[2017-06-14] MEDS: hydrALAZINE 25 MG TABLET PO ×2 (09:00→20:35)
[2017-06-14] MEDS: ISOSORBIDE MONONITRATE ER 30 MG TAB.ER.24H PO (09:00)
[2017-06-14] MEDS: LACTOBACILLUS RHAMNOSUS GG 1 CAPSULE. PO ×2 (09:00→20:35)
[2017-06-14] MEDS: CARVEDILOL 12.5 MG TABLET. PO ×2 (09:00→17:00)
[2017-06-14] MEDS: LISINOPRIL 20 MG TABLET PO (09:00)
[2017-06-14] MEDS: ASPIRIN ENTERIC COATED 81 MG TABLET.DR. PO (09:01)
[2017-06-14] MEDS: DOCUSATE SODIUM 100 MG CAPSULE. PO ×2 (09:01→20:32)
[2017-06-14] MEDS: amLODIPine BESYLATE 10 MG TABLET PO (09:01)
[2017-06-14] MEDS ORDERED: IV NORMAL SALINE 1000ML BAG 1,000 ML IV (09:14)
[2017-06-14] MEDS ORDERED: ALBUMIN HUMAN 25% 200 ML IV (09:15)
[2017-06-14] MEDS ORDERED: DIALYSIS PATIENT. MC (09:15)
[2017-06-14] MEDS: VANCOMYCIN PER PHARMACY MC (11:08)
[2017-06-14] MEDS: ONDANSETRON PF 4 MG/2 ML VIAL. IV (20:32)
[2017-06-14] MEDS: ACETAMINOPHEN 325 MG TABLET. PO (20:32)
[2017-06-14] MEDS: ZOLPIDEM 5 MG TABLET. PO (20:37)
[2017-06-15] MEDS: METOPROLOL TART IMMED RELEASE 50 MG TABLET. PO (00:01)
[2017-06-15 00:12] LABS: POC GLUCOSE 263 mg/dL (70-99)
[2017-06-15 03:07] LABS: BODY FLUID LDH 277 IU/L (.)
[2017-06-15 04:41] LABS: ANION GAP 8 (6-14); BLOOD UREA NITROGEN 48 mg/dL (8-26); CALCIUM 8.3 mg/dL (8.5-10.1); CARBON DIOXIDE 27 mmol/L (21-32); CHLORIDE 100 mmol/L (98-107); CREATININE 3.6 mg/dL (0.7-1.3); GFR 17.7; GLUCOSE 231 mg/dL (70-99); PHOSPHORUS 1.6 mg/dL (2.6-4.7); POTASSIUM 4.2 mmol/L (3.5-5.1); SODIUM 135 mmol/L (136-145)
[2017-06-15 05:05] LABS: MAGNESIUM 2.3 mg/dL (1.8-2.4)
[2017-06-15] MEDS: PIPERACILLIN/TAZOBACTAM 2.25 GM in IV NORMAL SALINE 50ML 50 ML IV ×3 (05:48→21:26)
[2017-06-15] MEDS: LEVOTHYROXINE 50 MCG TABLET PO (05:48)
[2017-06-15] MEDS: HEPARIN PF for SUB-Q USE 5,000 UNIT/0.5 ML VIAL. SQ ×3 (05:53→21:31)
[2017-06-15] MEDS: VANCOMYCIN RANDOM LEVEL. MC (06:00)
[2017-06-15] MEDS: VANCOMYCIN PER PHARMACY MC (07:16)
[2017-06-15 07:42] LABS: ADD MAN DIFF? NO
[2017-06-15 07:45] LABS: BASO # 0.1 x10^3/uL (0.0-0.2); BASO % 1 % (0-3); EOS # 0.1 x10^3/uL (0.0-0.7); EOS % 1 % (0-3); HEMATOCRIT 30.1 % (39.0-53.0); HEMOGLOBIN 9.5 g/dL (13.0-17.5); LYMPH # 0.7 x10^3/uL (1.0-4.8); LYMPH % 8 % (24-48); MEAN CORPUSCULAR HEMOGLOBIN 29 pg (25-35); MEAN CORPUSCULAR HGB CONC 32 g/dL (31-37); MEAN CORPUSCULAR VOLUME 90 fL (79-100); MONO % 12 % (0-9); NEUT # 6.5 x10^3uL (1.8-7.7); NEUT % 78 % (31-73); PLATELET COUNT 156 x10^3/uL (140-400); RED BLOOD COUNT 3.34 x10^6/uL (4.30-5.70); RED CELL DISTRIBUTION WIDTH 16.4 % (11.5-14.5); WHITE BLOOD COUNT 8.3 x10^3/uL (4.0-11.0)
[2017-06-15] MEDS: DOCUSATE SODIUM 100 MG CAPSULE. PO ×2 (08:53→21:18)
[2017-06-15] MEDS: LACTOBACILLUS RHAMNOSUS GG 1 CAPSULE. PO ×2 (08:53→21:17)
[2017-06-15] MEDS: CARVEDILOL 12.5 MG TABLET. PO ×2 (08:53→19:20)
[2017-06-15] MEDS: LISINOPRIL 20 MG TABLET PO (08:54)
[2017-06-15] MEDS: ISOSORBIDE MONONITRATE ER 30 MG TAB.ER.24H PO (08:54)
[2017-06-15] MEDS: ASPIRIN ENTERIC COATED 81 MG TABLET.DR. PO (08:54)
[2017-06-15] MEDS: amLODIPine BESYLATE 10 MG TABLET PO (08:56)
[2017-06-15] MEDS: METOPROLOL TART IMMED RELEASE 25 MG TABLET. PO ×2 (08:56→21:26)
[2017-06-15] MEDS: hydrALAZINE 25 MG TABLET PO ×2 (08:56→21:18)
[2017-06-15] MEDS: FUROSEMIDE 40 MG TABLET. PO ×2 (08:56→15:20)
[2017-06-15] MEDS: MORPHINE SULFATE 4 MG/ML DISP.SYRIN. IV ×2 (15:29→19:20)
[2017-06-15] MEDS: ONDANSETRON PF 4 MG/2 ML VIAL. IV (21:18)
[2017-06-15] MEDS: ZOLPIDEM 5 MG TABLET. PO (21:18)
[2017-06-15] MEDS: ACETAMINOPHEN 325 MG TABLET. PO (21:18)
[2017-06-16 03:47] LABS: ADD MAN DIFF? NO
[2017-06-16 04:00] LABS: BASO # 0.1 x10^3/uL (0.0-0.2); BASO % 1 % (0-3); EOS # 0.1 x10^3/uL (0.0-0.7); EOS % 2 % (0-3); HEMATOCRIT 27.3 % (39.0-53.0); HEMOGLOBIN 8.9 g/dL (13.0-17.5); LYMPH # 0.7 x10^3/uL (1.0-4.8); LYMPH % 9 % (24-48); MEAN CORPUSCULAR HEMOGLOBIN 29 pg (25-35); MEAN CORPUSCULAR HGB CONC 33 g/dL (31-37); MEAN CORPUSCULAR VOLUME 89 fL (79-100); MONO # 0.8 x10^3/uL (0.0-1.1); MONO % 10 % (0-9); NEUT # 6.3 x10^3uL (1.8-7.7); NEUT % 78 % (31-73); PLATELET COUNT 161 x10^3/uL (140-400); RED BLOOD COUNT 3.06 x10^6/uL (4.30-5.70); RED CELL DISTRIBUTION WIDTH 16.1 % (11.5-14.5); WHITE BLOOD COUNT 8.1 x10^3/uL (4.0-11.0)
[2017-06-16 04:48] LABS: ALBUMIN 1.8 g/dL (3.4-5.0); ANION GAP 9 (6-14); BLOOD UREA NITROGEN 71 mg/dL (8-26); CALCIUM 8.8 mg/dL (8.5-10.1); CARBON DIOXIDE 27 mmol/L (21-32); CHLORIDE 95 mmol/L (98-107); GFR 12.1; GLUCOSE 245 mg/dL (70-99); POTASSIUM 4.7 mmol/L (3.5-5.1); SODIUM 131 mmol/L (136-145)
[2017-06-16] MEDS: PIPERACILLIN/TAZOBACTAM 2.25 GM in IV NORMAL SALINE 50ML 50 ML IV (06:12)
[2017-06-16] MEDS: LEVOTHYROXINE 50 MCG TABLET PO (06:14)
[2017-06-16] MEDS: HEPARIN PF for SUB-Q USE 5,000 UNIT/0.5 ML VIAL. SQ ×3 (06:20→21:04)
[2017-06-16] MEDS: METOPROLOL TART IMMED RELEASE 25 MG TABLET. PO ×2 (09:00→21:03)
[2017-06-16] MEDS: LISINOPRIL 20 MG TABLET PO (09:00)
[2017-06-16] MEDS: hydrALAZINE 25 MG TABLET PO ×2 (09:00→21:03)
[2017-06-16] MEDS: ISOSORBIDE MONONITRATE ER 30 MG TAB.ER.24H PO (10:19)
[2017-06-16] MEDS: CARVEDILOL 12.5 MG TABLET. PO ×2 (10:20→17:19)
[2017-06-16] MEDS: FUROSEMIDE 40 MG TABLET. PO ×2 (10:20→17:19)
[2017-06-16] MEDS: LACTOBACILLUS RHAMNOSUS GG 1 CAPSULE. PO ×2 (10:20→21:03)
[2017-06-16] MEDS: DOCUSATE SODIUM 100 MG CAPSULE. PO ×2 (10:20→21:03)
[2017-06-16] MEDS: amLODIPine BESYLATE 10 MG TABLET PO (10:21)
[2017-06-16] MEDS: traMADol 50 MG TABLET PO (10:21)
[2017-06-16] MEDS: VANCOMYCIN PER PHARMACY MC (12:44)
[2017-06-16 15:04] LABS: ANION GAP 12 (6-14); BLOOD UREA NITROGEN 71 mg/dL (8-26); CALCIUM 8.7 mg/dL (8.5-10.1); CARBON DIOXIDE 25 mmol/L (21-32); CHLORIDE 95 mmol/L (98-107); CREATININE 5.1 mg/dL (0.7-1.3); GFR 11.8; GLUCOSE 242 mg/dL (70-99); POTASSIUM 4.7 mmol/L (3.5-5.1); SODIUM 132 mmol/L (136-145)
[2017-06-16] MEDS: ASPIRIN ENTERIC COATED 81 MG TABLET.DR. PO (17:19)
[2017-06-16] MEDS: AMOXICILLIN/K CLAV 875/125MG TABLET. PO (21:03)
[2017-06-16] MEDS: ZOLPIDEM 5 MG TABLET. PO (21:05)
[2017-06-17] MEDS: HEPARIN PF for SUB-Q USE 5,000 UNIT/0.5 ML VIAL. SQ ×3 (05:31→21:10)
[2017-06-17] MEDS: LEVOTHYROXINE 50 MCG TABLET PO (05:31)
[2017-06-17 05:35] LABS: ADD MAN DIFF? NO
[2017-06-17 05:39] LABS: BASO # 0.1 x10^3/uL (0.0-0.2); BASO % 2 % (0-3); EOS # 0.2 x10^3/uL (0.0-0.7); EOS % 2 % (0-3); HEMATOCRIT 28.6 % (39.0-53.0); HEMOGLOBIN 9.4 g/dL (13.0-17.5); LYMPH # 0.7 x10^3/uL (1.0-4.8); LYMPH % 7 % (24-48); MEAN CORPUSCULAR HEMOGLOBIN 29 pg (25-35); MEAN CORPUSCULAR HGB CONC 33 g/dL (31-37); MEAN CORPUSCULAR VOLUME 87 fL (79-100); MONO # 0.8 x10^3/uL (0.0-1.1); MONO % 9 % (0-9); NEUT # 7.1 x10^3uL (1.8-7.7); NEUT % 81 % (31-73); PLATELET COUNT 198 x10^3/uL (140-400); RED BLOOD COUNT 3.27 x10^6/uL (4.30-5.70); RED CELL DISTRIBUTION WIDTH 15.5 % (11.5-14.5); WHITE BLOOD COUNT 8.9 x10^3/uL (4.0-11.0)
[2017-06-17 06:01] LABS: ANION GAP 13 (6-14); BLOOD UREA NITROGEN 87 mg/dL (8-26); CALCIUM 9.2 mg/dL (8.5-10.1); CARBON DIOXIDE 25 mmol/L (21-32); CHLORIDE 93 mmol/L (98-107); CREATININE 6.4 mg/dL (0.7-1.3); GFR 9.1; GLUCOSE 134 mg/dL (70-99); PHOSPHORUS 3.3 mg/dL (2.6-4.7); POTASSIUM 5.6 mmol/L (3.5-5.1); SODIUM 131 mmol/L (136-145)
[2017-06-17] MEDS: CARVEDILOL 12.5 MG TABLET. PO ×2 (08:00→18:14)
[2017-06-17] MEDS ORDERED: IV NORMAL SALINE 1000ML BAG 1,000 ML IV (08:34)
[2017-06-17] MEDS ORDERED: DIALYSIS PATIENT. MC ×2 (08:45)
[2017-06-17] MEDS: METOPROLOL TART IMMED RELEASE 25 MG TABLET. PO ×2 (09:00→21:12)
[2017-06-17] MEDS: FUROSEMIDE 40 MG TABLET. PO ×2 (09:00→14:21)
[2017-06-17] MEDS: AMOXICILLIN/K CLAV 875/125MG TABLET. PO ×2 (09:00→21:11)
[2017-06-17] MEDS: DOCUSATE SODIUM 100 MG CAPSULE. PO ×2 (09:00→21:12)
[2017-06-17] MEDS: LACTOBACILLUS RHAMNOSUS GG 1 CAPSULE. PO ×2 (09:00→21:11)
[2017-06-17] MEDS: hydrALAZINE 25 MG TABLET PO ×2 (09:00→21:11)
[2017-06-17] MEDS ORDERED: PIPERACILLIN/TAZOBACTAM 2.25 GM in IV NORMAL SALINE 100ML 100 ML IV (14:00)
[2017-06-17] MEDS: ASPIRIN ENTERIC COATED 81 MG TABLET.DR. PO (14:20)
[2017-06-17] MEDS: traMADol 50 MG TABLET PO (14:20)
[2017-06-17] MEDS: amLODIPine BESYLATE 10 MG TABLET PO (14:20)
[2017-06-17] MEDS: LISINOPRIL 20 MG TABLET PO (14:21)
[2017-06-17] MEDS: ISOSORBIDE MONONITRATE ER 30 MG TAB.ER.24H PO (14:21)
[2017-06-17] MEDS ORDERED: VANCOMYCIN 500 MG in IV DEXTROSE 5% 100 ML IV (16:00)
[2017-06-17] MEDS: MORPHINE SULFATE 4 MG/ML DISP.SYRIN. IV (19:16)
[2017-06-17] MEDS: ZOLPIDEM 5 MG TABLET. PO (21:11)
[2017-06-17] MEDS: DARBEPOETIN ALFA 60 MCG/0.3 ML DISP.SYRIN. SQ (21:12)
[2017-06-18 04:10] LABS: ADD MAN DIFF? NO
[2017-06-18 04:16] LABS: BASO # 0.1 x10^3/uL (0.0-0.2); BASO % 1 % (0-3); EOS # 0.1 x10^3/uL (0.0-0.7); EOS % 1 % (0-3); HEMATOCRIT 27.5 % (39.0-53.0); LYMPH # 0.7 x10^3/uL (1.0-4.8); LYMPH % 7 % (24-48); MEAN CORPUSCULAR HEMOGLOBIN 29 pg (25-35); MEAN CORPUSCULAR HGB CONC 33 g/dL (31-37); MEAN CORPUSCULAR VOLUME 88 fL (79-100); MONO # 1.2 x10^3/uL (0.0-1.1); MONO % 11 % (0-9); NEUT # 9.1 x10^3uL (1.8-7.7); NEUT % 82 % (31-73); PLATELET COUNT 236 x10^3/uL (140-400); RED BLOOD COUNT 3.12 x10^6/uL (4.30-5.70); RED CELL DISTRIBUTION WIDTH 16.1 % (11.5-14.5); WHITE BLOOD COUNT 11.1 x10^3/uL (4.0-11.0)
[2017-06-18 04:41] LABS: ANION GAP 8 (6-14); BLOOD UREA NITROGEN 48 mg/dL (8-26); CARBON DIOXIDE 30 mmol/L (21-32); CHLORIDE 97 mmol/L (98-107); CREATININE 4.6 mg/dL (0.7-1.3); GFR 13.3; GLUCOSE 203 mg/dL (70-99); SODIUM 135 mmol/L (136-145)
[2017-06-18 04:44] LABS: POTASSIUM 4.4 mmol/L (3.5-5.1)
[2017-06-18] MEDS: LEVOTHYROXINE 50 MCG TABLET PO (05:03)
[2017-06-18] MEDS: HEPARIN PF for SUB-Q USE 5,000 UNIT/0.5 ML VIAL. SQ ×3 (05:03→23:39)
[2017-06-18] MEDS: DOCUSATE SODIUM 100 MG CAPSULE. PO ×2 (08:17→20:33)
[2017-06-18] MEDS: ASPIRIN ENTERIC COATED 81 MG TABLET.DR. PO (08:17)
[2017-06-18] MEDS: CARVEDILOL 12.5 MG TABLET. PO ×2 (08:18→17:00)
[2017-06-18] MEDS: FUROSEMIDE 40 MG TABLET. PO ×2 (08:18→14:00)
[2017-06-18] MEDS: AMOXICILLIN/K CLAV 875/125MG TABLET. PO (08:18)
[2017-06-18] MEDS: traMADol 50 MG TABLET PO (08:18)
[2017-06-18] MEDS: LACTOBACILLUS RHAMNOSUS GG 1 CAPSULE. PO ×2 (08:18→20:33)
[2017-06-18] MEDS: hydrALAZINE 25 MG TABLET PO ×2 (08:19→20:34)
[2017-06-18] MEDS: METOPROLOL TART IMMED RELEASE 25 MG TABLET. PO ×2 (08:19→20:35)
[2017-06-18] MEDS: amLODIPine BESYLATE 10 MG TABLET PO (08:19)
[2017-06-18] MEDS: ISOSORBIDE MONONITRATE ER 30 MG TAB.ER.24H PO (08:20)
[2017-06-18] MEDS: LISINOPRIL 20 MG TABLET PO (08:20)
[2017-06-18] MEDS ORDERED: CYCLOBENZAPRINE 10 MG TABLET. PO (10:15)
[2017-06-18] MEDS: LIDOCAINE/PRILOCAINE TOPICAL CREAM 5GM TUBE. TP (12:45)
[2017-06-19 05:36] LABS: ADD MAN DIFF? YES; BASO # 0.1 x10^3/uL (0.0-0.2); BASO % 1 % (0-3); EOS # 0.1 x10^3/uL (0.0-0.7); EOS % 1 % (0-3); HEMOGLOBIN 8.3 g/dL (13.0-17.5); LYMPH # 0.5 x10^3/uL (1.0-4.8); LYMPH % 5 % (24-48); MEAN CORPUSCULAR HEMOGLOBIN 29 pg (25-35); MEAN CORPUSCULAR HGB CONC 33 g/dL (31-37); MEAN CORPUSCULAR VOLUME 88 fL (79-100); MONO # 0.9 x10^3/uL (0.0-1.1); MONO % 9 % (0-9); NEUT # 9.3 x10^3uL (1.8-7.7); NEUT % 85 % (31-73); PLATELET COUNT 260 x10^3/uL (140-400); RED BLOOD COUNT 2.86 x10^6/uL (4.30-5.70); RED CELL DISTRIBUTION WIDTH 15.6 % (11.5-14.5)
[2017-06-19 05:55] LABS: ANION GAP 10 (6-14); BLOOD UREA NITROGEN 66 mg/dL (8-26); CALCIUM 8.8 mg/dL (8.5-10.1); CARBON DIOXIDE 28 mmol/L (21-32); CHLORIDE 94 mmol/L (98-107); GFR 9.8; GLUCOSE 187 mg/dL (70-99); POTASSIUM 4.9 mmol/L (3.5-5.1); SODIUM 132 mmol/L (136-145)
[2017-06-19] MEDS: LEVOTHYROXINE 50 MCG TABLET PO (06:28)
[2017-06-19] MEDS: HEPARIN PF for SUB-Q USE 5,000 UNIT/0.5 ML VIAL. SQ (06:30)
[2017-06-19 06:43] LABS: % BANDS 7 % (0-9); % EOS 1 % (0-5); % LYMPHS 2 % (24-48); % MONOS 7 % (0-10); % SEGS 83 % (35-66)
[2017-06-19 06:46] LABS: ANISOCYTOSIS SLIGHT; PLT ESTIMATE ADEQUATE (ADEQUATE)
[2017-06-19] MEDS ORDERED: IV NORMAL SALINE 1000ML BAG 1,000 ML IV (09:09)
[2017-06-19] MEDS ORDERED: DIALYSIS PATIENT. MC (09:15)
[2017-06-19] MEDS: CARVEDILOL 12.5 MG TABLET. PO (12:23)
[2017-06-19] MEDS: amLODIPine BESYLATE 10 MG TABLET PO (12:23)
[2017-06-19] MEDS: DOCUSATE SODIUM 100 MG CAPSULE. PO (12:23)
[2017-06-19] MEDS: LISINOPRIL 20 MG TABLET PO (12:24)
[2017-06-19] MEDS: LACTOBACILLUS RHAMNOSUS GG 1 CAPSULE. PO (12:24)
[2017-06-19] MEDS: METOPROLOL TART IMMED RELEASE 25 MG TABLET. PO (12:25)
[2017-06-19] MEDS: ASPIRIN ENTERIC COATED 81 MG TABLET.DR. PO (12:25)
[2017-06-19] MEDS: hydrALAZINE 25 MG TABLET PO (12:25)
[2017-06-19] MEDS: AMOXICILLIN/K CLAV 500/125MG TABLET. PO (12:25)
[2017-06-19] MEDS: FUROSEMIDE 40 MG TABLET. PO (12:25)
[2017-06-19] MEDS: ISOSORBIDE MONONITRATE ER 30 MG TAB.ER.24H PO (12:30)
== END 2017-06-19 14:20 | disposition home or self-care (01) | DRG 871 ==
LOC: 2 SOUTH 22:10 → ER 22:06
PROC: 5A09357 Assistance with Respiratory Ventilation, Less than 24 Consecutive Hours, Continuous Positive Airway Pressure (ICD-10-PCS; 2017-06-10)
PROC: 5A1D70Z Performance of Urinary Filtration, Intermittent, Less than 6 Hours Per Day (ICD-10-PCS; 2017-06-11)
PROC: 5A1D70Z Performance of Urinary Filtration, Intermittent, Less than 6 Hours Per Day (ICD-10-PCS; 2017-06-12)
PROC: 0W993ZZ Drainage of Right Pleural Cavity, Percutaneous Approach (ICD-10-PCS; principal; 2017-06-18)
DX: A41.9 Sepsis, unspecified organism (principal); N18.6 End stage renal disease; J96.21 Acute and chronic respiratory failure with hypoxia; I13.2 Hypertensive heart and chronic kidney disease with heart failure and with stage 5 chronic kidney disease, or end stage renal disease; J90 Pleural effusion, not elsewhere classified; E11.22 Type 2 diabetes mellitus with diabetic chronic kidney disease; J18.9 Pneumonia, unspecified organism; E11.42 Type 2 diabetes mellitus with diabetic polyneuropathy; I50.30 Unspecified diastolic (congestive) heart failure; J44.0 Chronic obstructive pulmonary disease with (acute) lower respiratory infection; Z99.81 Dependence on supplemental oxygen; I16.0 Hypertensive urgency; J20.9 Acute bronchitis, unspecified; D64.9 Anemia, unspecified; E03.9 Hypothyroidism, unspecified; E78.00 Pure hypercholesterolemia, unspecified; E78.5 Hyperlipidemia, unspecified; G89.29 Other chronic pain; H40.9 Unspecified glaucoma; I25.10 Atherosclerotic heart disease of native coronary artery without angina pectoris; K21.9 Gastro-esophageal reflux disease without esophagitis; Z82.49 Family history of ischemic heart disease and other diseases of the circulatory system; Z86.73 Personal history of transient ischemic attack (TIA), and cerebral infarction without residual deficits; Z99.2 Dependence on renal dialysis; H26.9 Unspecified cataract; M19.90 Unspecified osteoarthritis, unspecified site; Z98.49 Cataract extraction status, unspecified eye; D63.1 Anemia in chronic kidney disease; R30.0 Dysuria
CPT/HCPCS: 32555; 36415; 71045; 71046; 71250; 72080; 72100; 73560; 80048; 80053; 80069; 80076; 80202; 81001; 82553; 82962; 83605; 83615; 83735; 83880; 84157; 84484; 85007; 85025; 85610; 87040; 87071; 87075; 87086; 87205; 87804; 87804-59; 88112; 88305; 93005; 97161-GP; 97165-GO; 97535-GO; 99285; 99285-25; J0881; J1956; J2270; J2405; J2543; J3010; J3370

== ENCOUNTER 2020-03-24 09:05 | Day surgery (SDC) | payer OTHER, MEDICAID ==
[~2020-03-24 09:05] MED LIST changes: +ACET325T9 PO; +ALBU2.5V5 NEB; +AMLO-187 PO; -AMLO10TA2 PO; +AMOX1TAB10 PO; +APIX2.5T PO; +BUDE0.5A NEB; +CALC200T23 PO; +CARV12.511 PO; -CARV12.52 PO; +CHOL500050 PO; +CIPROFLOXACIN 0.3% OPHTH SOLUTION 5ML BOTTLE. OD ONE; +DARB60DI SQ; +DIPH25CA58 PO; +DOCU-109 PO; +FLUO20CA20 PO; -HYDR-2758 PO; +HYDR-2761 PO; +HYDR-2868 PO; +HYDR-2869 PO; +HYDR-3164 PO; -HYDR-971 PO; +ISOS30TA4 PO; +IV RINGERS,LACTATED 1000ML 1,000 ML IV SCH; +LACT1CAP19 PO; +LEVO50TA5 PO; +LIDOCAINE 2% JELLY 6ML IN APPLICATOR. OD ONE; +LISI-130 PO; +ONDA4TAB12 PO; +OXYC1TAB15 PO; +PANT20TA2 PO; +PANT40TA77 PO; +POLY17PO28 PO; +PROC5TAB14 PO; +PROC5TAB2 PO; +PROPARACAINE 0.5% OPHTH SOLUTION 15ML BOTTLE. OD ONE; +Pantoprazole PO; +SUCR1TAB35 PO
[2020-03-24] MEDS ORDERED: LIDOCAINE 1%/PHENYLEPH 1.5% PF OPHTH 1 ML VIAL. ONE (09:15)
[2020-03-24] MEDS ORDERED: NEO/POLYMYX/DEXAMETH OPHTH OINTMENT 3.5GM TUBE. ONE (09:15)
[2020-03-24] MEDS ORDERED: CHONDROIT-SOD-HYALURONATE KIT. ONE (09:16)
[2020-03-24] MEDS ORDERED: CHONDROITIN-SOD-HYALURONATE 0.5 ML DISP.SYRIN. ONE (09:16)
[2020-03-24] MEDS ORDERED: IV NORMAL SALINE 1000ML BAG 1,000 ML IV ONE (09:30)
[2020-03-24] MEDS: CYCLOPENTOLATE 2% OPHTH SOLUTION 2ML BOTTLE. OD SCH ×3 (09:55→10:04)
[2020-03-24] MEDS: PHENYLEPHRINE 10% OPHTH SOLUTION 5ML BOTTLE. OD SCH ×3 (09:55→10:04)
[2020-03-24] MEDS ORDERED: MIDAZOLAM HCL/PF 2 MG/2 ML VIAL. ONE (10:40)
[2020-03-24 11:41] VITALS: BP 97/50
--- NOTE | 2020-03-24 11:55 | OP ---
DATE OF SURGERY: 03/24/2020 PREOPERATIVE DIAGNOSES: Cataract of the right eye, status post pars plana vitrectomy for diabetic retinopathy. SURGEON: Greg Strange MD ANESTHESIA: Topical with monitored anesthesia care. DESCRIPTION OF PROCEDURE: The right eye was prepped with Betadine in the usual sterile fashion and draped. A paracentesis was performed followed by instillation of preservative-free lidocaine admixed with phenylephrine and balanced salt solution. A temporal clear corneal incision was made followed by instillation of Viscoat. A capsulorrhexis was performed followed by hydroexpression of the nucleus and further Viscoat was placed posterior and anterior to the nucleus and the phacoemulsification handpiece used to remove the nucleus. The I/A handpiece was used to remove the remainder of the cortex. Viscoelastic was injected in the capsular bag and an Elkin, model [id number] with a power of 24.0 diopters was placed into the capsular bag. Due to slight constriction of the pupil, the Sinskey hook was used to confirm that the trailing haptic was within the bag. Once this had been confirmed, the I/A handpiece was used to remove the viscoelastic and then balanced salt solution was used to hydrate the corneal wounds and no leak was noted. Maxitrol was placed on the eye and the eye shielded and the patient was sent to the recovery room uneventfully. GERG STRANGE MD DR: NALINI/nts JOB#: [id number] / [id number]
== END 2020-03-24 12:08 | disposition home or self-care (01) ==
LOC: SURG 09:05
PROVIDERS: ATTEND Ophthalmology
DX: E11.36 Type 2 diabetes mellitus with diabetic cataract (principal); E11.319 Type 2 diabetes mellitus with unspecified diabetic retinopathy without macular edema; H25.89 Other age-related cataract; I13.2 Hypertensive heart and chronic kidney disease with heart failure and with stage 5 chronic kidney disease, or end stage renal disease; I50.9 Heart failure, unspecified; E78.00 Pure hypercholesterolemia, unspecified; G47.30 Sleep apnea, unspecified; J44.9 Chronic obstructive pulmonary disease, unspecified; E11.22 Type 2 diabetes mellitus with diabetic chronic kidney disease; N18.6 End stage renal disease; K21.9 Gastro-esophageal reflux disease without esophagitis; Z79.899 Other long term (current) drug therapy; Z98.890 Other specified postprocedural states; Z82.49 Family history of ischemic heart disease and other diseases of the circulatory system; Z99.2 Dependence on renal dialysis; Z83.3 Family history of diabetes mellitus; Z20.828 Contact with and (suspected) exposure to other viral communicable diseases
CPT/HCPCS: 66984; 87426; C1780; C9803; J0171; J0690; J1580; J2250; J3490; U0003